=== PATIENT | female | born 1985 | race American Indian/Alaskan Native ===

== ENCOUNTER 2020-12-08 13:38 | Observation (INO) | payer OTHER ==
--- NOTE | 2020-12-08 14:24 | Emergency Department Report ---
Blank Doc - Documentation Documentation: 35-year-old female that presents with general abdominal pain with nausea vomit ing. 1- This initial assessment/diagnostic orders/clinical plan/ treatment(s) is/are subject to change based on pt's health status, clinical progression and re- assessment by fellow clinical providers in the ED. Further treatment and workup at subsequent clinical provers discretion. Patient/guardians urged not to elope from ED as their condition may be serious if not clinically assessed and manag ed. 2-lab 3-UA
[2020-12-08 14:48] LABS: Basophils % (Auto) 0.2 % (0.0-1.8); Eosinophils % (Auto) 0.2 % (0.0-4.3); Hematocrit 39.5 % (30.3-42.9); Lymphocytes # (Auto) 0.5 K/mm3 (1.2-5.4); Lymphocytes % (Auto) 7.2 % (13.4-35.0); Mean Corpuscular HGB Conc 33 % (30-34); Mean Corpuscular Volume 83 fl (79-97); Monocytes # (Auto) 0.3 K/mm3 (0.0-0.8); Monocytes % (Auto) 4.6 % (0.0-7.3); Platelet Count 450 K/mm3 (140-440); Red Blood Count 4.77 M/mm3 (3.65-5.03); Red Cell Distribution Width 18.1 % (13.2-15.2)
[2020-12-08 15:12] LABS: Alanine Aminotransferase 10 units/L (7-56); Albumin 4.5 g/dL (3.9-5); Blood Urea Nitrogen 5 mg/dL (7-17); Calcium 9.6 mg/dL (8.4-10.2); Hemolysis Index 14
[2020-12-08 15:21] LABS: BUN/Creatinine Ratio 7
[2020-12-08 16:10] LABS: Bilirubin,Urine NEG (Negative); Blood,Urine NEG (Negative); Color,Urine Yellow (Yellow); Mucus,Urine 3+ /HPF; Urobilinogen,Urine < 2.0 mg/dL (<2.0)
--- NOTE | 2020-12-08 17:18 | Cat Scan Report ---
CT OF THE ABDOMEN AND PELVIS WITH INTRAVENOUS CONTRAST INDICATION / CLINICAL INFORMATION: Abdominal pain. TECHNIQUE: The patient received 100 cc Omnipaque [address] scans at this location are performed using CT dose reduction for ALARA by means of automated exposure control. COMPARISON: None available. FINDINGS: ABDOMEN: The liver, spleen, gallbladder, bile ducts, pancreas, adrenal glands, kidneys and bowel demo nstrate no significant abnormality. No adenopathy is seen. The lung bases are clear. PELVIS: There is a 7.8 cm mass in the left lower pelvis which is predominantly solid with mild lower density centrally. The mass is causing deviation of the endometrial cavity to the right. There is a s mall amount of free fluid in the cul-de-sac. Normal-appearing ovaries are not definitely seen. There is no evidence of appendicitis or diverticulitis. I do not identify a hernia. The bones are nor mal. IMPRESSION: 7.8 cm mass in the left lower pelvis. Differential diagnosis includes a complicated uteri ne fibroid versus ovarian mass/torsion. There is minimal free fluid in the cul-de-sac. Transabdominal /transvaginal pelvic ultrasound may be helpful in further evaluation. Signer Name: Brian Mccartney MD Signed: 12/08/2020 5:13 PM Workstation Name: [id number]
[2020-12-08] MEDS ORDERED: ONDANSETRON 4 MG/2 ML INJ IV ONE ×2 (17:36→23:30)
[2020-12-08] MEDS ORDERED: MORPHINE 4 MG/1 ML INJ IV ONE ×2 (17:36→23:30)
--- NOTE | 2020-12-08 17:39 | Emergency Department Report ---
ED General Adult HPI - General Chief complaint: Abdominal Pain Stated complaint: ABD PAIN Time Seen by Provider: 12/08/20 14:23 Source: patient Mode of arrival: Wheelchair Limitations: No Limitations - History of Present Illness Initial comments: 35-year-old female patient presents to the emergency department with complaints of upper abdominal pain, nausea, and vomiting starting yesterday. Patient states she has not had a bowel movement since her pain began. No history of similar symptoms. No prior abdominal surgeries. No known sick contacts. No current steroid or antibiotic use. Denies fever, chills, rectal bleeding, vaginal bleeding, urinary symptoms, rash. Denies all other complaints at this time. - Related Data Allergies Allergy/AdvReac Type Severity Reaction Status Date / Time No Known Allergies Allergy Verified 12/08/20 23:54 ED Review of Systems ROS: Stated complaint: ABD PAIN Other details as noted in HPI Other: GENERAL: Negative for fever, chills, weight change, anorexia, fatigue. ENT: Negative for ear pain, difficulty hearing, sore throat, nasal congestion, epistaxis. CARDIOVASCULAR: Negative for chest pain, palpitations, lower extremity swelling. PULMONARY: Negative for cough, dyspnea, wheezing, orthopnea, cyanosis. GASTROINTESTINAL: Positive for abdominal pain, nausea, vomiting, constipation. MUSCULOSKELETAL: Negative for joint pain, joint swelling, myalgias, back pain, neck pain. NEUROLOGICAL: Negative for headache, seizure, syncope, paresthesias, weakness. INTEGUMENTARY: Negative for erythema, rash, diaphoresis, laceration, ecchymosis. HEMATOLOGICAL: Negative for hemoptysis, hematemesis, hematochezia, hematuria. PSYCHIATRIC: Negative for hallucinations, suicidal ideation, homicidal ideation, anxiety, depression. ED Past Medical Hx - Past Medical History Previous Medical History?: No - Surgical History Past Surgical History?: No - Social History Smoking Status: Current Every Day Smoker Substance Use Type: Alcohol, Marijuana ED Physical Exam - General Limitations: No Limitations - Other Other exam information: General: Awake and alert. Tearful, appears uncomfortable Head: Atraumatic, normocephalic. Eyes: EOMI. Pupils are equal and round. Normal sclera and conjunctiva. ENT: Oral mucosa is moist. Normal pharyngeal exam. Neck: Supple. No lymphadenopathy. Pulmonary: No respiratory distress. Clear to auscultation bilaterally. Cardiac: Regular rate and rhythm. Pulses are palpable and equal bilaterally. No lower extremity cyanosis or edema. Skin: Warm and dry. No rashes. Abdomen: Soft, nondistended. Left lower quadrant tenderness without guarding, rigidity, or rebound. Bowel sounds present. McBurney's point is nontender. Carr sign is negative. Pelvic: Female medical corps officer present. Normal external inspection. There is no cervical motion tenderness. No blood in the vaginal vault. There is bilateral adnexal tenderness, left greater than right, as well as uterine tenderness. Back: Normal alignment. No CVA tenderness. Extremities: Symmetrical. Full range of motion intact. Neurological: Alert and oriented, appropriately interactive, no focal deficits. Psych: Cooperative. Appropriate mood and affect. Speech is evenly metered. Thoughts are logically construed. ED Course Vital Signs 12/08/20 12/08/20 14:18 18:10 Temperature 98.6 F Pulse Rate 72 Respiratory 24 22 Rate Blood Pressure 135/107 O2 Sat by Pulse 100 Oximetry ED Medical Decision Making - Lab Data Result diagrams: 12/08/20 14:29 12/08/20 14:29 - Radiology Data [facility] [address] [place] [address] Ultrasound Report Signed Patient: ELHAM GROSS MR#: [id number] : 1985 Acct:[id number] Age/Sex: 35 / F ADM Date: 12/08/20 Loc: ED Attending Dr: Ordering Physician: MORRO CORDOVA Date of Service: 12/08/20 Procedure(s): US pelvic complete Accession Number(s): [id number] cc: MORRO CORDOVA Pelvic Ultrasound HISTORY: abdominal pain, ovarian torsion on CT. TECHNIQUE: Grayscale and color imaging performed. COMPARISON: CT abdomen/pelvis from earlier today FINDINGS: Uterus measures 12.6 x 5.6 x 9.5 cm with several hypoechoic masses within the uterus likely representing fibroids. The right ovary is normal in size and appearance with preserved blood flow. The left ovary was not visualized on this exam because it was apparently obscured. There is also a large hypoechoic mass in the left paracentral aspect of the pelvis which likely corresponds with the CT findings. There is marginal blood flow within this finding but the images makes this appear to be part of the lower uterine segment which is not clear on the CT exam. The left ovary is not clearly visualized. IMPRESSION: 1. Large solid mass in the left paracentral pelvis with marginal blood flow but relative lack of internal blood flow. The provided images show this mass to blend with the lower uterine segment and the left ovary is not separately visualized. The differential provided on the CT from today is unchanged with fibroid versus ovarian mass or torsion. 2. Other small masses are present in the uterus which most likely represent fibroids. Signer Name: Fahad Dobbs MD Signed: 12/08/2020 11:11 PM Workstation Name: [id number] Transcribed By: MIKAYLA Dictated By: Fahad Dobbs MD Electronically Authenticated By: Fahad Dobbs MD Signed Date/Time: 12/08/20 2311 [facility] [address] [place] [id number] Cat Scan Report Signed Patient: ELHAM GROSS MR#: [id number] : 1985 Acct:[id number] Age/Sex: 35 / F ADM Date: 12/08/20 Loc: ED Attending Dr: Ordering Physician: KACEY VARGAS NP Date of Service: 12/08/20 Procedure(s): CT abdomen pelvis w con Accession Number(s): [id number] cc: KACEY VARGAS NP CT OF THE ABDOMEN AND PELVIS WITH INTRAVENOUS CONTRAST INDICATION / CLINICAL INFORMATION: Abdominal pain. TECHNIQUE: The patient received 100 cc Omnipaque [address] scans at this location are performed using CT dose reduction for ALARA by means of automated exposure control. COMPARISON: None available. FINDINGS: ABDOMEN: The liver, spleen, gallbladder, bile ducts, pancreas, adrenal glands, kidneys and bowel demonstrate no significant abnormality. No adenopathy is seen. The lung bases are clear. PELVIS: There is a 7.8 cm mass in the left lower pelvis which is predominantly solid with mild lower density centrally. The mass is causing deviation of the endometrial cavity to the right. There is a small amount of free fluid in the cul-de-sac. Normal-appearing ovaries are not definitely seen. There is no evidence of appendicitis or diverticulitis. I do not identify a hernia. The bones are normal. IMPRESSION: 7.8 cm mass in the left lower pelvis. Differential diagnosis includes a complicated uterine fibroid versus ovarian mass/torsion. There is minimal free fluid in the cul-de-sac. Transabdominal/transvaginal pelvic ultrasound may be helpful in further evaluation. Signer Name: Brian Mccartney MD Signed: 12/08/2020 5:13 PM Workstation Name: [id number] Transcribed By: RT Dictated By: Brian Mccartney MD Electronically Authenticated By: Brian Mccartney MD Signed Date/Time: 12/08/201712 DD/ 05 TD/TT: - Medical Decision Making Differential diagnosis including but not limited to: ectopic , ovarian cyst/torsion, tubo-ovarian abscess, pelvic inflammatory disease, pyelonephritis, nephrolithiasis, urinary tract infection, pancreatitis, bowel obstruction, bowel perforation, uterine perforation 17:06: CT of the abdomen/pelvis obtained by provider during medical screening exam shows 7.8 cm mass in the left lower pelvis; complicated uterine fibroid vs. ovarian mass vs. ovarian torsion, (+) free fluid in the cul-de-sac. Transvaginal/transabdominal pelvic ultrasound recommended for further evaluation. 17:35: Case discussed with Dr. Mackey, attending emergency physician, regarding the decision to obtain further imaging versus proceed with surgical consultation; recommended obtaining ultrasound prior to discussing case with surgery. Ultrasound ordered. 21:51: Ultrasound results pending. Spoke with ultrasound department; radiologist has reportedly not yet reviewed imaging studies. 23:02: Ultrasound results pending. Spoke with ultrasound department; radiologist is reportedly still in the process of reviewing imaging studies. 23:11: Ultrasound shows uterine fibroids as well as a large solid mass in the left paracentral pelvis with marginal blood flow and relative lack of internal blood flow; mass blends with lower uterine segment and left ovary is not separately visualized. The differential diagnosis reported on earlier CT scan remains unchanged. Case discussed with Dr. Mackey, attending emergency physician, who recommends proceeding with surgical consultation. 23:46: Case discussed with Dr. Garcia, RADIO PROGRAM DIRECTOR, who agrees to review imaging and admit patient for further evaluation. Upon further interrogation, patient states that her last Pap smear was approximately 3 years ago. She has not seen a embossing clerk since her last Pap smear. She has been treated for STDs previously but has never tested positive for HPV or had an abnormal Pap smear. She has no known history of uterine fibroids or ovarian disease. The patient's pain and nausea is controlled at this time. No fever, no tachycardia, no apparent distress. Repeat abdominal exam without signs of peritonitis; soft, non-distended, no rigidity or rebound. Although radiographic studies are inconclusive, the patient's pain has been present for >24 hours, and she does not appear to have a surgical abdomen based on vital signs and current clinical presentation. Patient will be admitted for pain control and further diagnostic work-up. Patient will be kept NPO in case of surgical intervention. Patient expressed understanding and is agreeable to plan of care. Critical care attestation.: If time is entered above; I have spent that time in minutes in the direct care of this critically ill patient, excluding procedure time. ED Disposition Clinical Impression: Pelvic mass Uterine fibroid Qualifiers: Uterine leiomyoma location: unspecified location Qualified Code(s): D25.9 - Leiomyoma of uterus, unspecified Disposition: OP ADMIT IP TO THIS HOSP Is pt being admited?: Yes Condition: Stable Instructions: Abdominal Pain (ED)
--- NOTE | 2020-12-08 23:16 | Ultrasound Report ---
Pelvic Ultrasound HISTORY: abdominal pain, ovarian torsion on CT. TECHNIQUE: Grayscale and color imaging performed. COMPARISON: CT abdomen/pelvis from earlier today FINDINGS: Uterus measures 12.6 x 5.6 x 9.5 cm with several hypoechoic masses within the uterus likely representing fibroids. The right ovary is normal in size and appearance with preserved blood flow. The left ovary was not vi sualized on this exam because it was apparently obscured. There is also a large hypoechoic mass in th e left paracentral aspect of the pelvis which likely corresponds with the CT findings. There is luther nal blood flow within this finding but the images makes this appear to be part of the lower uterine s egment which is not clear on the CT exam. The left ovary is not clearly visualized. IMPRESSION: 1. Large solid mass in the left paracentral pelvis with marginal blood flow but relative lack of inte rnal blood flow. The provided images show this mass to blend with the lower uterine segment and the l eft ovary is not separately visualized. The differential provided on the CT from today is unchanged w ith fibroid versus ovarian mass or torsion. 2. Other small masses are present in the uterus which most likely represent fibroids. Signer Name: Fahad Dobbs MD Signed: 12/08/2020 11:11 PM Workstation Name: [id number]
[2020-12-09] MEDS: MORPHINE 2 MG/1 ML INJ IV PRN ×3 (03:37→15:36)
[2020-12-09] MEDS: SODIUM CHLORIDE 0.9% 1000 ML 1,000 ML IV SCH ×2 (03:38→15:37)
--- NOTE | 2020-12-09 07:29 | Consultation ---
History of Present Illness - Reason for Consult Consult date: 12/09/20 - History of Present Illness Pt was admitted from ED with reported complaint of LLQ pain and finding of fibroids on ultrasound and CT scan. When speaking to patient this am, pt states that her primary complaint and reason for coming to the hospital is because of chest pain as well as back pain. Pt also states that she has been unable to keep anything down. Pt states that she recently relocated to [place] and does not have a physician here. Pt states that her pain and chief concern is in her chest. Past History Past Medical History: hypertension Past Surgical History: No surgical history Social history: single, other (cocaine use) Medications and Allergies Allergies Allergy/AdvReac Type Severity Reaction Status Date / Time No Known Allergies Allergy Verified 12/08/20 23:54 Active Meds: Active Medications Sodium Chloride (Nacl 0.9% 1000 Ml) 1,000 mls @ 100 mls/hr IV DIRECT RAMESH Last Admin: 12/09/20 03:38 Dose: 100 mls/hr Documented by: Morphine Sulfate (Morphine 2 Mg/1 Ml Inj) 2 mg IV Q4H PRN PRN Reason: Pain, Moderate (4-6) Last Admin: 12/09/20 03:37 Dose: 2 mg Documented by: Ondansetron HCl (Ondansetron 4 Mg/2 Ml Inj) 4 mg IV Q6HR RAMESH Review of Systems All systems: negative Breasts: deferred Cardiovascular: chest pain, shortness of breath Genitourinary Female: dyspareunia Integumentary: deferred Psychiatric: anxiety, change in libido, disorientation Exam - Constitutional Vitals: Temp Pulse Resp BP Pulse Ox 98.0 F 72 18 127/91 99 12/09/20 03:50 12/09/20 03:50 12/09/20 03:50 12/09/20 03:50 12/09/20 03:50 General appearance: Present: no acute distress, well-nourished - Neck Neck: Present: supple, normal ROM - Respiratory Respiratory effort: normal Respiratory: bilateral: CTA - Cardiovascular Rhythm: regular Heart Sounds: Present: S1 & S2. Absent: rub, click - Extremities Extremities: no ischemia, pulses symmetrical, No edema - Abdominal General gastrointestinal: Present: soft, tender (mildly), non-distended, normal bowel sounds Female genitourinary: Present: normal - Rectal Rectal Exam: deferred Results - Labs CBC & Chem 7: 12/08/20 14:29 12/08/20 14:29 Labs: Abnormal lab results 12/08/20 12/08/20 12/08/20 Range/Units 14:29 14:29 15:19 MCH 27 L (28-32) pg RDW 18.1 H (13.2-15.2) % Plt Count 450 H (140-440) K/mm3 Lymph % (Auto) 7.2 L (13.4-35.0) % Lymph # (Auto) 0.5 L (1.2-5.4) K/mm3 Seg Neutrophils % 87.8 H (40.0-70.0) % Potassium 3.5 L (3.6-5.0) mmol/L BUN 5 L (7-17) mg/dL Glucose 115 H (65-100) mg/dL Total Protein 8.5 H (6.3-8.2) g/dL Urine pH 9.0 H (5.0-7.0) Assessment and Plan 35 year old female who presents with chest pain, back pain and nausea as her primary complaint. 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 Spoke with hospitalist who agrees to take patient on his service and transfer to telemetry for monitoring.
--- NOTE | 2020-12-09 10:01 | XRay Report ---
CHEST 1 VIEW 12/09/2020 8:53 AM INDICATION / CLINICAL INFORMATION: chest pain. COMPARISON: None available. FINDINGS: SUPPORT DEVICES: None. HEART / MEDIASTINUM: No significant abnormality. LUNGS / PLEURA: Clear lungs. No significant pleural effusion. No pneumothorax. ADDITIONAL FINDINGS: No significant additional findings. IMPRESSION: 1. No acute abnormality of the chest. Signer Name: Ugo Anders MD Signed: 12/09/2020 9:56 AM Workstation Name: [id number]
[2020-12-09] MEDS: ONDANSETRON 4 MG/2 ML INJ IV SCH ×3 (11:51→23:56)
--- NOTE | 2020-12-09 13:04 | History and Physical Report ---
History of Present Illness Date of admission: 12/08/20 23:46 Chief complaint: Chest pain, abdominal pain History of present illness: 35-year-old female with no prior medical history presented to the hospital with chief complaint of abdominal pain and chest pain. Patient complains of lower abdominal pain that started few days ago. She also has some left-sided chest pain and back pain. Denies any shortness of breath with ambulation. Chest pain is now worse with ambulation or exertion. She also has associated nausea and vomiting as a result of the abdominal pain. She denies any history of coronary artery disease in the family. She denies any history of cholesterol problems. Here in the ER, patient had a CT abdomen and pelvis that showed possible ovarian torsion/mass. No other acute pathology seen in the abdomen and pelvis. Due to her complaint of chest pain, patient was admitted to hospital for further evaluation. Past History Past Medical History: hypertension Past Surgical History: No surgical history Social history: single, other (cocaine use) Medications and Allergies Allergies Allergy/AdvReac Type Severity Reaction Status Date / Time No Known Allergies Allergy Verified 12/08/20 23:54 Active Meds: Active Medications Sodium Chloride (Nacl 0.9% 1000 Ml) 1,000 mls @ 100 mls/hr IV DIRECT RAMESH Last Admin: 12/09/20 03:38 Dose: 100 mls/hr Documented by: Morphine Sulfate (Morphine 2 Mg/1 Ml Inj) 2 mg IV Q4H PRN PRN Reason: Pain, Moderate (4-6) Last Admin: 12/09/20 07:28 Dose: 2 mg Documented by: Ondansetron HCl (Ondansetron 4 Mg/2 Ml Inj) 4 mg IV Q6HR RAMESH Last Admin: 12/09/20 11:51 Dose: 4 mg Documented by: Review of Systems All systems: negative Cardiovascular: chest pain Gastrointestinal: abdominal pain Exam - Physical Exam Narrative exam: VITAL SIGNS: Reviewed. GENERAL: Awake HEAD: No signs of head trauma. EYES: Pupils are equal. Extraocular motions intact. MOUTH: Oropharynx is normal. NECK: No adenopathy, no JVD. CHEST: Midsternal area tender on palpation. CARDIAC: normal S1 and S2, without murmurs, gallops, or rubs. ABDOMEN: Soft, non tender and non distended. No rebound or guarding, and no masses palpated. Bowel Sounds normal. MUSCULOSKELETAL: No edema NEUROLOGIC EXAM: Alert and oriented x3. No focal neurologic deficits SKIN: No obvious lesions - Constitutional Vitals: Temp Pulse Resp BP Pulse Ox 98.0 F 73 18 111/75 95 12/09/20 07:42 12/09/20 07:42 12/09/20 07:42 12/09/20 07:42 12/09/20 07:42 - Respiratory Respiratory effort: normal - Cardiovascular Heart Sounds: Absent: rub, click - Psychiatric Psychiatric: appropriate mood/affect, intact judgment & insight Results - Labs CBC & Chem 7: 12/08/20 14:29 12/08/20 14:29 Labs: Laboratory Last Values WBC 7.0 K/mm3 (4.5-11.0) 12/08/20 14: RBC 4.77 M/mm3 (3.65-5.03) 12/08/20 14:29 Hgb 13.0 gm/dl (10.1-14.3) 12/08/20 14:29 Hct 39.5 % (30.3-42.9) 12/08/20 14:29 MCV 83 fl (79-97) 12/08/20 14:29 MCH 27 pg (28-32) L 12/08/20 14:29 MCHC 33 % (30-34) 12/08/20 14:29 RDW 18.1 % (13.2-15.2) H 12/08/20 14:29 Plt Count 450 K/mm3 (140-440) H 12/08/20 14:29 Lymph % (Auto) 7.2 % (13.4-35.0) L 12/08/20 14:29 Burnett % (Auto) 4.6 % (0.0-7.3) 12/08/20 14:29 Eos % (Auto) 0.2 % (0.0-4.3) 12/08/20 14:29 Baso % (Auto) 0.2 % (0.0-1.8) 12/08/20 14:29 Lymph # (Auto) 0.5 K/mm3 (1.2-5.4) L 12/08/20 14:29 Burnett # (Auto) 0.3 K/mm3 (0.0-0.8) 12/08/20 14:29 Eos # (Auto) 0.0 K/mm3 (0.0-0.4) 12/08/20 14:29 Baso # (Auto) 0.0 K/mm3 (0.0-0.1) 12/08/20 14:29 Seg Neutrophils % 87.8 % (40.0-70.0) H 12/08/20 14:29 Seg Neutrophils # 6.2 K/mm3 (1.8-7.7) 12/08/20 14:29 Sodium 139 mmol/L (137-145) 12/08/20 14:29 Potassium 3.5 mmol/L (3.6-5.0) L 12/08/20 14:29 Chloride 99.4 mmol/L (98-107) 12/08/20 14:29 Carbon Dioxide 27 mmol/L (22-30) 12/08/20 14:29 Anion Gap 16 mmol/L 12/08/20 14:29 BUN 5 mg/dL (7-17) L 12/08/20 14:29 Creatinine 0.7 mg/dL (0.6-1.2) 12/08/20 14:29 Estimated GFR > 60 ml/min 12/08/20 14:29 BUN/Creatinine Ratio 7 % 12/08/20 14:29 Glucose 115 mg/dL (65-100) H 12/08/20 14:29 Calcium 9.6 mg/dL (8.4-10.2) 12/08/20 14:29 Total Bilirubin 0.40 mg/dL (0.1-1.2) 12/08/20 14:29 AST 16 units/L (5-40) 12/08/20 14:29 ALT 10 units/L (7-56) 12/08/20 14:29 Alkaline Phosphatase 60 units/L (35-129) 12/08/20 14:29 Total Protein 8.5 g/dL (6.3-8.2) H 12/08/20 14:29 Albumin 4.5 g/dL (3.9-5) 12/08/20 14:29 Albumin/Globulin Ratio 1.1 % 12/08/20 14:29 Lipase 18 units/L (13-60) 12/08/20 14:29 HCG, Qual Negative (Negative) 12/08/20 14:29 Urine Color Yellow (Yellow) 12/08/20 15:19 Urine Turbidity Slightly-cloudy (Clear) 12/08/20 15:19 Urine pH 9.0 (5.0-7.0) H 12/08/20 15:19 Ur Specific [place] 1.019 (1.003-1.030) 12/08/20 15:19 Urine Protein 100 mg/dl mg/dL (Negative) 12/08/20 15:19 Urine Glucose (UA) Neg mg/dL (Negative) 12/08/20 15:19 Urine Ketones Tr mg/dL (Negative) 12/08/20 15:19 Urine Blood Neg (Negative) 12/08/20 15:19 Urine Nitrite Neg (Negative) 12/08/20 15:19 Urine Bilirubin Neg (Negative) 12/08/20 15:19 Urine Urobilinogen < 2.0 mg/dL (<2.0) 12/08/20 15:19 Ur Leukocyte Esterase Neg (Negative) 12/08/20 15:19 Urine WBC (Auto) 4.0 /HPF (0.0-6.0) 12/08/20 15:19 Urine RBC (Auto) 3.0 /HPF (0.0-6.0) 12/08/20 15:19 U Epithel Cells (Auto) 10.0 /HPF (0-13.0) 12/08/20 15:19 Urine Mucus 3+ /HPF 12/08/20 15:19 Vale/IV: Voiding Method Toilet Assessment and Plan Assessment and plan: #Chest pain EKG and troponin stat Pain is reproducible on palpation Pending results of the EKG and troponin, patient may need a stress test #Lower abdominal pain Due to ovarian mass/torsion Acute pathology seen in the abdomen and pelvis SHREDDER OPERATOR on board-patient will follow up with SHREDDER OPERATOR after discharge #Smoking Smoking cessation counseling provided #DVT prophylaxis-Lovenox
[2020-12-09] MEDS ORDERED: KETOROLAC 30 MG/1 ML INJ IV PRN (13:24)
[2020-12-10] MEDS: MORPHINE 2 MG/1 ML INJ IV PRN (00:06)
[2020-12-10] MEDS: ONDANSETRON 4 MG/2 ML INJ IV SCH ×2 (00:07→05:56)
[2020-12-10] MEDS ORDERED: PANTOPRAZOLE 40 MG TAB PO SCH (07:30)
[2020-12-10] MEDS: SODIUM CHLORIDE 0.9% 1000 ML 1,000 ML IV SCH (10:11)
--- NOTE | 2020-12-10 10:41 | Consultation ---
History of Present Illness Consult date: 12/10/20 Consult reason: bradycardia History of present illness: 35-year-old female with no prior medical history presented to the hospital with chief complaint of abdominal pain and chest pain. Patient complains of lower abdominal pain that started few days ago. She also has some left-sided chest pain and back pain. Denies any shortness of breath with ambulation. Chest pain is now worse with ambulation or exertion. She also has associated nausea and vomiting as a result of the abdominal pain. She denies any history of coronary artery disease in the family. She denies any history of cholesterol problems. Patient was uncooperative during my evaluation this morning. Initially she reported she was not able to speak because she had "just woken up." Subsequently she was able to answer questions. She reports sharp intermittent pains in left side of her chest which happen without relationship to exertion. She also reports pain in her lower abdomen area which makes her "buckle over" when trying to walk. When I asked her if she used any illicit drugs, she initially reported that she usedd multiple substances including "pills" and soledad annalisa and had used within the last week. She subsequently reported that she has not used any illicit drugs in the last week. ECG reveals SR with first degree AV block, anterior T wave inversions. Telemetry monitoring has revealed periods of bradycardia related to second degree, type 1 AV block and intermittent 2:1 AV block. Echocardiogram reveals normal LVEF, impaired relaxation Past History Past Medical History: hypertension Past Surgical History: No surgical history Social history: single, smoking, other (cocaine use) Medications and Allergies Allergies Allergy/AdvReac Type Severity Reaction Status Date / Time No Known Allergies Allergy Verified 12/08/20 23:54 Active Meds: Active Medications Sodium Chloride (Nacl 0.9% 1000 Ml) 1,000 mls @ 100 mls/hr IV DIRECT RAMESH Last Admin: 12/10/20 10:11 Dose: 100 mls/hr Documented by: Ketorolac Tromethamine (Ketorolac 30 Mg/1 Ml Inj) 30 mg IV Q6H PRN PRN Reason: Pain, Moderate (4-6) Stop: 12/14/20 13:23 Morphine Sulfate (Morphine 2 Mg/1 Ml Inj) 2 mg IV Q4H PRN PRN Reason: Pain, Moderate (4-6) Last Admin: 12/10/20 00:06 Dose: 2 mg Documented by: Ondansetron HCl (Ondansetron 4 Mg/2 Ml Inj) 4 mg IV Q6HR RAMESH Last Admin: 12/10/20 05:56 Dose: 4 mg Documented by: Pantoprazole Sodium (Pantoprazole 40 Mg Tab) 40 mg PO QDAC RAMESH Review of Systems All systems: negative (per hpi) Physical Examination Vital Signs Temp Pulse Resp BP Pulse Ox 98.6 F 72 24 135/107 100 12/08/20 14:18 12/08/20 14:18 12/08/20 14:18 12/08/20 14:18 12/08/20 14:18 General appearance: no acute distress Cardiac: Positive: Reg Rate and Rhythm Lungs: Positive: clear to auscultation Abdomen: Positive: Soft, Active Bowel Sounds Results 12/08/20 14:29 12/08/20 14:29 Assessment and Plan Atypical chest pain: Not consistent with ACS Bradycardia with intermittent second degree type 1 and 2:1 AV block Abdominal pain Normal LV systolic function based on echo H/O Polysubstance abuse Recommend: Extensively counseled patient to refrain from substance abuse Next step in her cardiac evaluation would be stress MPI to evaluate chronotropic function as well as myocardial perfusion - this can be done on saturday if she is still here or as an outpatient if she is discharged prior to that.
--- NOTE | 2020-12-10 12:24 | Discharge Summary ---
Providers - Providers Date of Admission: 12/08/20 23:46 Date of discharge: 12/10/20 Attending physician: CIPRIANO LATIF 12/10/20 00:33 Consult to Cardiology [CONS] Routine Consulting Provider: CHAYA HEART Piotr FELDER Reason For Exam: second degree heart block type 2 Primary care physician: WARP SPINNER Hospitalization Condition: Stable Hospital course: 35-year-old female with no prior medical history presented to the hospital with chief complaint of abdominal pain and chest pain. Patient complains of lower abdominal pain that started few days ago. She also has some left-sided chest pain and back pain. Denies any shortness of breath with ambulation. Chest pain is now worse with ambulation or exertion. She also has associated nausea and vomiting as a result of the abdominal pain. She denies any history of coronary artery disease in the family. She denies any history of cholesterol problems. Here in the ER, patient had a CT abdomen and pelvis that showed possible ovarian torsion/mass. No other acute pathology seen in the abdomen and pelvis. Due to her complaint of chest pain, patient was admitted to hospital for further evaluation. Here, patient had an EKG shows some changes. Troponin was negative. Cardiology was consulted for evaluation. As per cardiology, patient to have a stress test as outpatient. No stress test available during this weekend. Patient will be discharged home to follow-up with cardiology in a week for stress test. She agrees with treatment Disposition: DC-01 TO HOME OR SELFCARE Final Discharge Diagnosis (Prints w/discharge instructions): Chest pain Time spent for discharge: 20 minutes - Discharge Diagnoses (1) Chest pain Status: Acute Core Measure Documentation - Palliative Care Palliative Care/ Comfort Measures: Not Applicable - Core Measures Any of the following diagnoses?: none Exam - Physical Exam Narrative exam: VITAL SIGNS: Reviewed. GENERAL: Awake HEAD: No signs of head trauma. EYES: Pupils are equal. Extraocular motions intact. MOUTH: Oropharynx is normal. NECK: No adenopathy, no JVD. CHEST: Midsternal area tender on palpation. CARDIAC: normal S1 and S2, without murmurs, gallops, or rubs. ABDOMEN: Soft, non tender and non distended. No rebound or guarding, and no masses palpated. Bowel Sounds normal. MUSCULOSKELETAL: No edema NEUROLOGIC EXAM: Alert and oriented x3. No focal neurologic deficits SKIN: No obvious lesions - Constitutional Vitals: Temp Pulse Resp BP Pulse Ox 97.7 F 64 22 140/88 99 12/10/20 04:52 12/10/20 07:33 12/10/20 07:34 12/10/20 07:34 12/10/20 07:33 Plan Additional Instructions: Stop cocaine use. Stop tobacco abuse. Follow-up with cardiology in a week for stress test
--- NOTE | 2020-12-10 13:14 | Progress Note ---
Assessment and Plan Assessment and plan: #Chest pain EKG shows T wave inversions in V1 to V3 and AV block Troponin negative Cardiology recommended stress test Plan for stress test on 12/12 #Lower abdominal pain Due to ovarian mass/torsion Acute pathology seen in the abdomen and pelvis STUDENT SUCCESS ADVISOR on board-patient will follow up with STUDENT SUCCESS ADVISOR after discharge #Smoking/substance abuse Last substance abuse was 3 weeks prior to presentation. Cessation counseling rendered Smoking cessation counseling provided #DVT prophylaxis-Lovenox - Patient Problems (1) Chest pain Current Visit: Yes Status: Acute History Interval history: Hospital course: 35-year-old female with no prior medical history presented to the hospital with chief complaint of abdominal pain and chest pain. Patient complains of lower ab dominal pain that started few days ago. She also has some left-sided chest pain and back pain. Denies any shortness of breath with ambulation. Chest pain is now worse with ambulation or exertion. She also has associated nausea and vomiting as a result of the abdominal pain. She denies any history of coronary artery disease in the family. She denies any history of cholesterol problems. Here in the ER, patient had a CT abdomen and pelvis that showed possible ovarian torsion/mass. No other acute pathology seen in the abdomen and pelvis. Due to her complaint of chest pain, patient was admitted to hospital for further evaluation. No stress test Here, patient had an EKG shows some changes. Troponin was negative. Cardiology was consulted for evaluation. 12/10. Patient is to have a stress test. Patient would like to do stress test on Saturday prior to discharge. Stress test ordered for Saturday. CAP BLOCKER following for fibroids/ovarian disease. Hospitalist Physical - Physical exam Narrative exam: VITAL SIGNS: Reviewed. GENERAL: Awake HEAD: No signs of head trauma. EYES: Pupils are equal. Extraocular motions intact. MOUTH: Oropharynx is normal. NECK: No adenopathy, no JVD. CHEST: Midsternal area tender on palpation. CARDIAC: normal S1 and S2, without murmurs, gallops, or rubs. ABDOMEN: Soft, non tender and non distended. No rebound or guarding, and no masses palpated. Bowel Sounds normal. MUSCULOSKELETAL: No edema NEUROLOGIC EXAM: Alert and oriented x3. No focal neurologic deficits SKIN: No obvious lesions - Constitutional Vitals: Temp Pulse Resp BP Pulse Ox 97.7 F 64 22 140/88 99 12/10/20 04:52 12/10/20 07:33 12/10/20 07:34 12/10/20 07:34 12/10/20 10:00 HEART Score - HEART Score Troponin: Troponin T < 0.010 ng/mL (0.00-0.029) 12/10/20 09:29 Results - Labs CBC & Chem 7: 12/08/20 14:29 12/08/20 14:29 Labs: Laboratory Last Values WBC 7.0 K/mm3 (4.5-11.0) 12/08/20 14:29 RBC 4.77 M/mm3 (3.65-5.03) 12/08/20 14:29 Hgb 13.0 gm/dl (10.1-14.3) 12/08/20 14: Hct 39.5 % (30.3-42.9) 12/08/20 14:29 MCV 83 fl (79-97) 12/08/20 14: MCH 27 pg (28-32) L 12/08/20 14: MCHC 33 % (30-34) 12/08/20 14:29 RDW 18.1 % (13.2-15.2) H 12/08/20 14:29 Plt Count 450 K/mm3 (140-440) H 12/08/20 14:29 Lymph % (Auto) 7.2 % (13.4-35.0) L 12/08/20 14:29 [place] % (Auto) 4.6 % (0.0-7.3) 12/08/20 14:29 Eos % (Auto) 0.2 % (0.0-4.3) 12/08/20 14:29 Baso % (Auto) 0.2 % (0.0-1.8) 12/08/20 14:29 Lymph # (Auto) 0.5 K/mm3 (1.2-5.4) L 12/08/20 14: [place] # (Auto) 0.3 K/mm3 (0.0-0.8) 12/08/20 14:29 Eos # (Auto) 0.0 K/mm3 (0.0-0.4) 12/08/20 14:29 Baso # (Auto) 0.0 K/mm3 (0.0-0.1) 12/08/20 14:29 Seg Neutrophils % 87.8 % (40.0-70.0) H 12/08/20 14:29 Seg Neutrophils # 6.2 K/mm3 (1.8-7.7) 12/08/20 14:29 Sodium 139 mmol/L (137-145) 12/08/20 14:29 Potassium 3.5 mmol/L (3.6-5.0) L 12/08/20 14:29 Chloride 99.4 mmol/L (98-107) 12/08/20 14:29 Carbon Dioxide 27 mmol/L (22-30) 12/08/20 14:29 Anion Gap 16 mmol/L 12/08/20 14:29 BUN 5 mg/dL (7-17) L 12/08/20 14:29 Creatinine 0.7 mg/dL (0.6-1.2) 12/08/20 14:29 Estimated GFR > 60 ml/min 12/08/20 14:29 BUN/Creatinine Ratio 7 % 12/08/20 14:29 Glucose 115 mg/dL (65-100) H 12/08/20 14:29 Calcium 9.6 mg/dL (8.4-10.2) 12/08/20 14:29 Total Bilirubin 0.40 mg/dL (0.1-1.2) 12/08/20 14:29 AST 16 units/L (5-40) 12/08/20 14:29 ALT 10 units/L (7-56) 12/08/20 14:29 Alkaline Phosphatase 60 units/L (35-129) 12/08/20 14:29 Troponin T < 0.010 ng/mL (0.00-0.029) 12/10/20 09:29 Total Protein 8.5 g/dL (6.3-8.2) H 12/08/20 14:29 Albumin 4.5 g/dL (3.9-5) 12/08/20 14:29 Albumin/Globulin Ratio 1.1 % 12/08/20 14:29 Lipase 18 units/L (13-60) 12/08/20 14:29 HCG, Qual Negative (Negative) 12/08/20 14:29 Urine Color Yellow (Yellow) 12/08/20 15:19 Urine Turbidity Slightly-cloudy (Clear) 12/08/20 15:19 Urine pH 9.0 (5.0-7.0) H 12/08/20 15:19 Ur Specific [place] 1.019 (1.003-1.030) 12/08/20 15:19 Urine Protein 100 mg/dl mg/dL (Negative) 12/08/20 15:19 Urine Glucose (UA) Neg mg/dL (Negative) 12/08/20 15:19 Urine Ketones Tr mg/dL (Negative) 12/08/20 15:19 Urine Blood Neg (Negative) 12/08/20 15:19 Urine Nitrite Neg (Negative) 12/08/20 15:19 Urine Bilirubin Neg (Negative) 12/08/20 15:19 Urine Urobilinogen < 2.0 mg/dL (<2.0) 12/08/20 15:19 Ur Leukocyte Esterase Neg (Negative) 12/08/20 15:19 Urine WBC (Auto) 4.0 /HPF (0.0-6.0) 12/08/20 15:19 Urine RBC (Auto) 3.0 /HPF (0.0-6.0) 12/08/20 15:19 U Epithel Cells (Auto) 10.0 /HPF (0-13.0) 12/08/20 15:19 Urine Mucus 3+ /HPF 12/08/20 15:19 Coronavirus (PCR) Negative (Negative) 12/09/20 09:36 Vale/IV: Voiding Method Toilet Active Medications - Current Medications Current Medications: Generic Name Dose Route Start Last Admin Trade Name Freq PRN Reason Stop Dose Admin Sodium Chloride 1,000 mls @ 100 mls/hr 12/08/20 23:45 12/10/20 10:11 Nacl 0.9% 1000 Ml IV 100 mls/hr DIRECT RAMESH Administration Ketorolac Tromethamine 30 mg 12/09/20 13:24 Ketorolac 30 Mg/1 Ml Inj IV 12/14/20 13:23 Q6H PRN Pain, Moderate (4-6) Morphine Sulfate 2 mg 12/08/20 23:48 12/10/20 00:06 Morphine 2 Mg/1 Ml Inj IV 2 mg Q4H PRN Administration Pain, Moderate (4-6) Ondansetron HCl 4 mg 12/08/20 23:45 12/10/20 05:56 Ondansetron 4 Mg/2 Ml Inj IV 4 mg Q6HR RAMESH Administration Pantoprazole Sodium 40 mg 12/10/20 07:30 Pantoprazole 40 Mg Tab PO QDAC RAMESH Nutrition/Malnutrition Assess - Dietary Evaluation Nutrition/Malnutrition Findings: Nutrition Notes Start: 12/09/20 13:50 Freq: Status: Active Protocol: Document 12/09/20 13:51 CW (Rec: 12/09/20 13:54 CW [email or web address]) Nutrition Notes Need for Assessment generated from: welding machine operator arc,MST Initial or Follow up Brief Note Current Diagnosis Hypertension Other Pertinent Diagnosis uterine fibroids Current Diet NPO Labs/Tests K 3.5 Pertinent Medications NS at 100 ml/hr Zofran Height 5 ft 6 in Weight 63.502 kg [place] Body Weight (kg) 59.09 BMI 22.6 Weight Status Appropriate Subjective/Other Information RN screen for MSR and skin risk. Pt asleep and did not want to talk during initial visit at 1130 and did not answer phone at 1350. Curtis score of 21 GI Symptoms Nausea,Vomiting,Other Current % PO Negligible Nutrition Intervention Change Diet Order: Diet advancement as medically feasible Goal #1 Diet advancement Anticipated Discharge Needs: Regular diet Follow-Up By: 12/12/20 Additional Comments F/U for nutrition assessment and diet advancement
[2020-12-10 17:08] VITALS: BP 75/45
[2020-12-10] MEDS ORDERED: oxyCODONE /ACETAMINOPHEN 5-325MG TAB PO PRN ×2 (17:28→17:35)
--- NOTE | 2020-12-12 10:31 | Electrocardiograph Report ---
[facility] Test Date: 2020-12-10 Test Time: 01:01:47 Pat Name: ELHAM GROSS Department: Room: A469 1 Gender: F Enterprise Software Engineer: DENNIS : 1985 Requested By: ASAD CEDILLO Order Number: [id number] Reading MD: Félix Raphael Measurements Intervals [place] Rate: 65 P: 0 TN: 91 QRS: 46 QRSD: 98 T: 55 QT: 492 QTc: 511 Interpretive Statements Sinus rhythm Abnormal T, consider ischemia, anterior leads No previous ECG available for comparison Electronically Signed On 12-12-2020 10:30:48 EDT by Félix Raphael
--- NOTE | 2020-12-12 10:36 | Electrocardiograph Report ---
[facility] Test Date: 2020-12-10 Test Time: 11:51:46 Pat Name: ELHAM GROSS Department: Room: A469 1 Gender: F Oncology Radiation Physician: CATY : 1985 Requested By: DELVIN MCCOLLUM Order Number: [id number] Reading MD: Félix Raphael Measurements Intervals [place] Rate: 56 P: 0 IN: 114 QRS: 37 QRSD: 105 T: 48 QT: 523 QTc: 507 Interpretive Statements Second degree AV block, [place] II Probable left ventricular hypertrophy Abnormal T, consider ischemia, anterior leads No previous ECG available for comparison Electronically Signed On 12-12-2020 10:36:11 EDT by Félix Raphael
== END 2020-12-10 20:00 | disposition home or self-care (01) ==
LOC: ED 13:38 → OB 23:46 → 3A 12-09 14:33 → 4A 12-09 17:52
PROVIDERS: ADMIT Obstetrics & Gynecology; ATTEND Obstetrics & Gynecology
DX: R07.89 Other chest pain (principal); Z20.822 Contact with and (suspected) exposure to COVID-19; R19.00 Intra-abdominal and pelvic swelling, mass and lump, unspecified site; D25.9 Leiomyoma of uterus, unspecified; I10 Essential (primary) hypertension; R10.30 Lower abdominal pain, unspecified; R00.1 Bradycardia, unspecified; F17.200 Nicotine dependence, unspecified, uncomplicated
CPT/HCPCS: 36415; 71045; 74177; 76830; 76856; 80053; 81001; 83690; 84484; 84703; 85025; 93306; 96361; 96374; 96375; 96376; 99285; G0378; J2270; J2405; J7030; Q9967; U0003; 93005